=== PATIENT | male | born 1970 ===

== ENCOUNTER 2025-01-27 15:09 | Emergency (ER) | payer OTHER, SELFPAY ==
[2025-01-27 15:15] VITALS: BP 156/98
[2025-01-27 15:36] LABS: % Basophils 0.5 % (0-2); % Immature Granulocytes 0.4 % (0-0.5); % Lymphocytes 18.1 % (20.5-51.1); % Monocytes 5.2 % (1.7-9.3); % Neutrophils 75.8 % (42.2-75.2); Absolute Lymphocytes 1.4 10^3/uL (1.2-3.4); Absolute Monocytes 0.4 10^3/uL (0.1-0.6); Absolute Neutrophils 5.8 10^3/uL (1.4-6.5); Hematocrit 46.3 % (39.0-52.0); Hemoglobin 15.4 g/dL (13.0-18.0); Mean Corp Hgb Conc. 33.3 g/dL (33.0-37.0); Mean Corpuscular Hgb 28.3 pg (27.0-31.0); Nucleated Red Blood Cells % 0 % (-); Platelet Count 301 10^3/uL (130-400); Red Blood Cell Count 5.45 10^6/uL (4.70-6.10); Red Cell Dist. Width 13.4 % (11.5-14.5); White Blood Cell Count 7.7 10^3/uL (4.8-10.8)
[2025-01-27 15:51] LABS: ALT (SGPT) 48 U/L (0-50); AST (SGOT) 26 U/L (17-59); Alkaline Phosphatase 48 U/L (38-126); Blood Urea Nitrogen 13 mg/dl (9-20); Carbon Dioxide 26 mmol/L (22-30); Chloride 108 mmol/L (98-107); Glucose 112 mg/dl (70-99); Potassium 4.4 mmol/L (3.5-5.1); Sodium 143 mmol/L (135-145); Total Bilirubin 0.7 mg/dl (0.2-1.3); Total Protein 7.8 g/dl (6.3-8.2); eGFR > 60.00
[2025-01-27 16:02] LABS: Troponin I < 0.012 ng/ml
--- NOTE | 2025-01-27 16:58 | ED.GENMED ---
History of Present Illness
General
Chief Complaint: Abdominal Symptoms
Source: patient
Exam Limitations: none
Time Seen by Provider: 01/27/25 16:51
Nursing documentation reviewed up to this point in time: agreed with
History of Present Illness
History of Present Illness:
Patient to ED with complaint of dizziness and headache. Dizziness started last PM, headache started just [employer]. No prior history of same. Denies fever/chills, recent illness. No n/v, abdominal pain, chest pain/pressure, SOB. Brought to ED by
friend for eval
Past History
Past History
ED Past Medical History: None
ED Past Surgical History: None
Review of Systems
Review of Systems
Allergies reviewed?: Yes
All Other Systems: ROS reviewed and negative except as documented in HPI and ROS
Constitutional: Reports no symptoms
EENT: Reports no symptoms
Respiratory: Reports no symptoms
Cardiac: Reports no symptoms
ABD/GI: Reports no symptoms
: Reports no symptoms
Musculoskeletal: Reports no symptoms
Skin: Reports no symptoms
Neurological: Reports dizzy and headache
Psychiatric: Reports no symptoms
Phy Exam
General Physical Exam
General Presentation: well appearing and no apparent distress
General age: appears stated age
General Skin: warm and dry
General Habitus: normal
General Mental: alert
ENT Exam
ENT Exam: EOMI, TM's normal, neck supple, normocephalic and swallowing well
Eye Exam
Eye Exam: PERRL, EOMI, conjunctiva normal, globe normal and other (No nystagmus)
Neurological Exam
Neurological Exam: alert, oriented x3, CN II-XII intact, no motor deficits, no sensory deficits, speech normal and normal gait
Musculoskeletal Exam
Musculoskeletal Exam: full ROM and neuro vasc intact
Skin Exam
Skin Exam: normal color, warm/dry and no rash
Psychiatric Exam
Psychiatric Exam: normal mood/affect
Course
Orders/Labs/Results
Orders:
Orders
01/27/25 15:18
EKG [Electrocardiogram (*1)] Urgent
Reason for Study: Vertigo / Dizzy
01/27/25 15:19
EKG- Treatment ONCE
01/27/25 15:28
CBC/With Diff [Complete Blood Count/With Diff] Urgent
Comprehensive Metabolic Panel Urgent
Troponin I Urgent
01/27/25 16:58
CT Head W/o Iv Contrast Urgent
Comment:
Reason For Exam: dizziness, DAVIDSON
01/27/25 18:42
Meclizine [Antivert] 25 mg PO NOW STA
Abnormal Lab Results
01/27/25
15:28
Neutrophils % 75.8 H %
(42.2-75.2)
Lymphocytes % 18.1 L %
(20.5-51.1)
Chloride 108 H mmol/L
(98-107)
Glucose 112 H mg/dl
(70-99)
01/27/25 15:28
01/27/25 15:28
Vital Signs
Initial and Last Documented VS:
Initial Vital Signs
Temp Pulse Resp BP Pulse Ox
98.2 F 51 16 156/98 100
01/27/25 15:15 01/27/25 15:15 01/27/25 15:15 01/27/25 15:15 01/27/25 15:15
Last Documented Vital Signs
Temp Pulse Resp BP Pulse Ox
98.2 F 51 16 119/80 99
01/27/25 15:15 01/27/25 15:15 01/27/25 15:15 01/27/25 18:13 01/27/25 18:15
*Radiology
Radiology exam reviewed: radiology read reviewed
*Pulse Oximetry
Patient hypoxic: no
*Critical Care Note
Total Time (30-74mins, 75-104mins- exclusive of procedures): Not Applicable
Update Note
Update Note:
Patient to ED with complaint of dizziness x 24 hours. Labs, EKG WNL.. VSS, afebrile. CT neg for acute process. Discusses results with patient. he feels his dizziness is improving. WIll try meclizine, first dose given in dept. He will be
discharged home, follow up wiht PCP. Given instructions on s/s to return to ED and he is agreeable to plan.
ED Attending Note
-
Portions of this chart may have been created with voice recognition software.� Occasional wrong word or��sound alike� substitutions may have occurred due to the inherent limitations of voice recognition software.
Discharge Plan
Departure
Patient Disposition: Home (Routine Discharge)
Date of Disposition: 01/27/25
Time of Disposition: 18:45
Patient with high blood pressure during this ER visit?: No
Condition: Good
Covid-19: Not Applicable
Discharge Problem:
Vertigo
Instructions: Vertigo - ED discharge instructions
Prescriptions:
New
meclizine 25 mg tablet
25 mg PO TID PRN (Reason: dizziness) Qty: 12 0RF
Referrals:
UNKNOWN - PT DOES,NOT KNOW [Family Provider]
Activity Restrictions/Additional Instructions:
Follow up with your family doctor. REturn to the emergency department immediately for any changes in/worsening of your symptoms.
Interventions
Interventions:
*Risk Screen - Suicide Last Done: 01/27/25 15:15
*General Assessment Last Done: 01/27/25 17:09
*Neglect/Abuse Screening Last Done: 01/27/25 15:15
*ED- Fall Risk Assessment Last Done: 01/27/25 17:09
*ED COVID-19 Vaccine History Last Done: 01/27/25 17:09
IK-Wairrr-Titqhexehh Assessment Last Done: 01/27/25 17:09
Discharge Date and Time
Print Language: SYRIAC
[2025-01-27 18:13] VITALS: BP 119/80
[2025-01-27] MEDS: ANTIVERT 25 MG PO (18:50)
== END 2025-01-27 19:10 | disposition home or self-care (01) ==
LOC: EMR 15:09
PROVIDERS: EMERGENCY PHYSICIAN Emergency Medicine
DX: R42 Dizziness and giddiness (principal)
CPT/HCPCS: 99285; 70450; 80053; 84484; 85025; 93005

== ENCOUNTER 2025-08-09 01:46 | Emergency (ER) | payer SELFPAY ==
[2025-08-09] VITALS (8 sets, daily range): BP systolic 122–153; BP diastolic 87–98
[2025-08-09 03:48] LABS: INR 1.03; PT 13.3 Sec (11.4-14.6)
[2025-08-09 03:49] LABS: APTT 29.1 Sec (23.4-35.0)
[2025-08-09 03:50] LABS: Hematocrit 41.3 % (39.0-52.0); Hemoglobin 13.8 g/dL (13.0-18.0); Mean Corp Hgb Conc. 33.4 g/dL (33.0-37.0); Mean Corpuscular Volume 80.5 fL (80.0-94.0); Nucleated Red Blood Cells % 0 % (-); Platelet Count 260 10^3/uL (130-400); Red Cell Dist. Width 14.2 % (11.5-14.5)
[2025-08-09 03:56] LABS: ALT (SGPT) 39 U/L (0-50); AST (SGOT) 26 U/L (17-59); Albumin 4.2 g/dl (3.5-5.0); Alkaline Phosphatase 51 U/L (38-126); Blood Urea Nitrogen 13 mg/dl (9-20); Calcium 8.9 mg/dl (8.4-10.2); Carbon Dioxide 21 mmol/L (22-30); Chloride 105 mmol/L (98-107); Estimated Creatinine Clearance 103 ml/min; Glucose 112 mg/dl (70-99); Potassium 4.1 mmol/L (3.5-5.1); Sodium 135 mmol/L (135-145); Total Protein 6.9 g/dl (6.3-8.2); eGFR > 60.00
[2025-08-09 04:08] LABS: Troponin I < 0.012 ng/ml
[2025-08-09 04:26] LABS: TSH 1.12 uIU/ml (0.47-4.68)
--- NOTE | 2025-08-09 06:06 | ED.GENMED ---
History of Present Illness
General
Chief Complaint: Blood Pressure Problem
Time Seen by Provider: 08/09/25 03:10
History of Present Illness
History of Present Illness:
Note:
CHIEF COMPLAINT(S)
Sudden spike in blood pressure, dizziness, chest discomfort, and headache.
HISTORY OF PRESENT ILLNESS
The patient is a 55-year-old male who presents with a sudden increase in blood pressure noted either yesterday or today. He reports dizziness and describes a transient chest pain that occurred around 2 a.m., approximately an hour and a half before
presenting, which has since subsided. Currently, the patient still experiences dizziness and reports a sense of pressure in his head. He notes having a headache rated about 3 or 4 out of 10 on the pain scale. The patient denies any preceding similar
episodes.
PAST MEDICAL AND SURIGICAL HISTORY
No past surgeries reported. The patient denies any known history of cardiac issues.
ADDITIONAL HISTORY OBTAINED FROM SOURCES OTHER THAN THE PATIENT
(None indicated.)
FAMILY HISTORY
Father of a heart condition at the age of 64, approximately 20-30 years ago.
SOCIAL HISTORY
The patient denies smoking and alcohol use. 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
REVIEW OF SYSTEMS
- Neurological: Dizziness, pressure sensation in the head.
- Cardiovascular: Previous chest discomfort, currently resolved.
- Headache: Reported with moderate intensity.
PHYSICAL EXAM
General: Alert, no acute distress.
Skin: Warm, dry.
Head: Normocephalic, atraumatic.
Neck: Supple, trachea midline.
Eyes, Ears, Nose, Mouth, and Throat: Oral mucosa moist.
Cardiovascular: Normal peripheral perfusion, No edema.
Respiratory: Respirations are non-labored.
Gastrointestinal: Abdomen nondistended.
Back: Normal range of motion, Normal alignment.
Musculoskeletal: Normal ROM, normal strength.
Neurological: Alert and oriented to person, place, time, and situation. No focal neurological deficit observed.
Psychiatric: Cooperative, appropriate mood & affect.
PROBLEM LIST
Acute problems:
- Sudden spike in blood pressure
- Dizziness
- Chest discomfort
- Headache
PLAN
A full cardiac evaluation will be conducted, and a second component assessment will follow around 6 a.m. The patient is advised to rest in between evaluations.
DIFFERENTIAL DIAGNOSIS
The Differential Diagnosis includes, in no particular order and is not limited to:
1. Hypertensive emergency
2. Myocardial infarction
3. Anxiety-induced hypertension
4. Transient ischemic attack
5. Cardiac arrhythmia
6. Acute coronary syndrome
7. Intracranial hemorrhage
8. Pheochromocytoma
9. Aortic dissection
10. Vestibular disorder
Disposition:
SUMMARY OF ENCOUNTER
The patient, a 55-year-old male, presented to the emergency department (ED) with complaints of left-sided chest discomfort, elevated blood pressure, and a mild headache. The patient reported that these symptoms began around 1 a.m. but had resolved
by the time of the evaluation in the ED. 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 He denied experiencing fever, chills, current chest pain, or shortness of breath. There is no personal cardiac
history, though his father had a myocardial infarction at the age of 64. Initial management in the ED included a plan for a repeated EKG and troponin test to further assess cardiac function.
PLAN
Perform a second EKG and troponin test to evaluate for any underlying cardiac issues. Patient to be discharged home following these assessments as long as results are reassuring.
FOLLOW-UP INSTRUCTIONS
The patient will follow up with his primary care provider to ensure resolution of symptoms and to monitor blood pressure.
MEDICAL DECISION MAKING
- Number and Complexity of Problems Addressed: Chronic conditions affecting care include the differential diagnosis list, which involves hypertensive emergency, myocardial infarction, anxiety-induced hypertension, transient ischemic attack, cardiac
arrhythmia, acute coronary syndrome, intracranial hemorrhage, pheochromocytoma, aortic dissection, and vestibular disorder.
- Data:
Category 1:
- Ordered a second EKG and a troponin test.
- Risk: Consideration of Admission/Observation: Escalation of care, including admission/observation, was considered given the complexity and risk of the patients presenting complaint, exam findings, and/or their underlying comorbidities. However,
ultimately I feel the patient is safe for outpatient management with close follow-up. Reasoning: Work-up reassuring, does not reveal any acute life/organ-threatening processes, patients symptoms well-controlled upon reevaluation, reexamination is
reassuring, vitals are stable, patient agreeable with discharge, reliable for follow-up.
DIAGNOSIS
- Essential hypertension (ICD-10: I10)
- Non-cardiac chest pain (ICD-10: R07.89)
- Headache (ICD-10: R51)
Past History
Past History
ED Past Medical History: None
ED Past Surgical History: None
Phy Exam
Physical Exam
Physical Exam:
.
Course
Orders/Labs/Results
Orders:
Orders
08/09/25 01:59
EKG [Electrocardiogram (*1)] Urgent
Reason for Study: Hypertension, Benign
EKG- Treatment ONCE
08/09/25 03:10
CR Chest - 2 Views Urgent
Comment:
Reason For Exam: cp
08/09/25 03:16
Complete Blood Count/With Diff Urgent
Comprehensive Metabolic Panel Urgent
PTT Urgent
Prothrombin Time Urgent
TSH Urgent
Troponin I Urgent
08/09/25 04:16
EKG- Treatment ONCE
08/09/25 06:55
Troponin I Urgent
08/09/25 07:00
Electrocardiogram (*1) Urgent
Reason for Study: Chest Pain
Abnormal Lab Results
08/09/25
03:16
MCH 26.9 L pg
(27.0-31.0)
Carbon Dioxide 21 L mmol/L
(22-30)
Glucose 112 H mg/dl
(70-99)
08/09/25 03:16
08/09/25 03:16
Vital Signs
Initial and Last Documented VS:
Initial Vital Signs
Temp Pulse Resp BP Pulse Ox
98.4 F 71 18 153/98 96
08/09/25 01:53 08/09/25 01:53 08/09/25 01:53 08/09/25 01:53 08/09/25 01:53
Last Documented Vital Signs
Temp Pulse Resp BP Pulse Ox
98.4 F 62 12 123/95 98
08/09/25 01:53 08/09/25 07:30 08/09/25 06:15 08/09/25 07:00 08/09/25 07:30
*Pulse Oximetry
SaO2: 97
Oxygen Mode of Delivery: Room air
Patient hypoxic: no
*EKG
Interpreted by ED Provider?: Yes
EKG Intrepretation Date: 08/09/25
Interpretation: normal
Comparison EKG: no changes
Heart Rate: 66
Rate: normal
Rhythm: sinus
[place]: normal axis
Interval: normal interval
QRS Pattern: normal QRS
Ischemia: no ischemia
*Critical Care Note
Total Time (30-74mins, 75-104mins- exclusive of procedures): Not Applicable
ED Attending Note
-
Portions of this chart may have been created with voice recognition software.� Occasional wrong word or��sound alike� substitutions may have occurred due to the inherent limitations of voice recognition software.
Discharge Plan
Departure
Patient Disposition: Home (Routine Discharge)
Date of Disposition: 08/09/25
Time of Disposition: 07:34
Patient with high blood pressure during this ER visit?: Yes
Condition: Good
Discharge Problem:
Chest pain
Instructions: Chest Pain DCA Follow Up, BLOOD PRESSURE
Prescriptions:
No Action
meclizine 25 mg tablet
25 mg PO TID PRN (Reason: dizziness) Qty: 12 0RF
Referrals:
chest pain [Other]
NONE,* [Family Provider, Internal Medicine]
Activity Restrictions/Additional Instructions:
Thank You for choosing [facility].
It was a pleasure meeting you and taking part in your care. We hope for your continued healing and wellness.
Please read discharge instructions in their entirety. However, they are for general education and may not describe your exact diagnosis at discharge. Information on your ER visit and medical conditions were discussed with you along with appropriate
follow up information...
If indicated, please take your medications as instructed and indicated on discharge paperwork.
Please schedule a follow up appointment as directed. Call to schedule an appointment
Please return to the emergency department with ANY change in, persisting, or worsening of symptoms. If any of your symptoms do not improve, or persist, or become more severe within 6-12 hours, please return to the emergency department for further
care.
Please return to the emergency department if you develop a headache, neck pain/stiffness, fever greater than 100.4F, chest pain, shortness of breath, persistent nausea, vomiting, slurred speech, difficulty walking, numbness/tingling, weakness, signs
of infection or any other symptoms that are worrisome to you.
If you have any questions or concerns please do not hesitate to call the Hospital at .
Interventions
Interventions:
*General Assessment Last Done: 08/09/25 02:32
*Neglect/Abuse Screening Last Done: 08/09/25 02:32
*ED COVID-19 Vaccine History Last Done: 08/09/25 02:32
*ED Influenza Vaccine History Last Done: 08/09/25 02:32
[facility] Fall Risk Assessment Tool Last Done: 08/09/25 02:32
*Risk Screen - Suicide (C-SSRS) Last Done: 08/09/25 01:53
*Nursing Disposition Last Done: 08/09/25 07:56
ED- Cardiac Assessment Last Done: 08/09/25 02:32
ED- Neurological Assessment Last Done: 08/09/25 02:32
ED- Pulmonary Assessment Last Done: 08/09/25 02:32
Discharge Date and Time
Discharge Date/Time: 08/09/25 07:57
Print Language: [id number]
[2025-08-09 07:29] LABS: Troponin I < 0.012 ng/ml
== END 2025-08-09 07:57 | disposition home or self-care (01) ==
LOC: EMR 01:46
PROVIDERS: EMERGENCY PHYSICIAN Student in an Organized Health Care Education/Training Program
DX: R07.89 Other chest pain (principal); R42 Dizziness and giddiness; I10 Essential (primary) hypertension; Z63.4 Disappearance and death of family member
CPT/HCPCS: 99283; 71046; 80053; 84443; 84484; 85025; 85610; 85730; 93005